=== PATIENT | female | born 1995 | race Caucasian/White ===

== ENCOUNTER 2024-11-06 06:33 | Emergency (ER) | payer OTHER ==
[~2024-11-06] VITALS: Ht 175.3 cm; Wt 88.0 kg
[2024-11-06] MEDS ORDERED: METFORMIN HCL750 MG PO (06:52)
[2024-11-06] MEDS ORDERED: ondansetron HCL 4 MG/2 ML VIAL IV ONE (07:00)
[2024-11-06] MEDS ORDERED: SODIUM CHLORIDE 0.9% 1,000 ML IV PRN (07:00)
[2024-11-06 07:17] LABS: BASOPHILS 0.3 % (0-2); EOSINOPHILS 0.6 % (0-6); HEMATOCRIT 40.8 % (35.0-50.0); HEMOGLOBIN 13.5 g/dL (12.0-18.0); LYMPHOCYTES 3.2 % (24-44); MCH 26.1 (27-36); MCHC 33.1 g/dl (30-36); MCV 78.8 fl (81-99); MONOCYTES 2.9 % (0-12); PLATELET COUNT 297 K/uL (140-440); RBC 5.18 M/ul (4.3-5.7); RDW 13.3 (10.5-15.0)
[2024-11-06 07:31] LABS: ALBUMIN/GLOBULIN RATIO 1.08 (1.1-2.4); ANION GAP 18.9 (7-21); BILIRUBIN, TOTAL 0.9 mg/dL (0.2-1.0); BUN/CREATININE RATIO 13.95 (6.0-28.6); CALCIUM 9.5 mg/dL (8.5-10.1); CREATININE, SERUM 0.86 mg/dL (0.55-1.02); MAGNESIUM 1.6 mg/dL (1.8-2.4); POTASSIUM 3.9 mmol/L (3.5-5.1); PROTEIN, TOTAL 7.7 g/dL (6.4-8.2)
[2024-11-06 08:02] LABS: BILIRUBIN, URINE NEGATIVE (negative); BLOOD/HGB, URINE NEGATIVE (Negative); KETONE, URINE TRACE (Negative); LEUK ESTERASE, URINE NEGATIVE (negative); NITRITE, URINE NEGATIVE (negative)
[2024-11-06] MEDS ORDERED: DICYCLOMINE HCL20 MG PO (08:47)
[2024-11-06] MEDS ORDERED: ONDANSETRON ODT4 MG PO (08:47)
[2024-11-06] MEDS ORDERED: MAGNESIUM400 M1 PO (08:47)
[2024-11-06 08:51] VITALS: BP 117/70
== END 2024-11-06 08:51 | disposition home or self-care (01) ==
LOC: ED 06:33
PROVIDERS: Emergency Medicine
DX: K52.9 Noninfective gastroenteritis and colitis, unspecified (principal); Z88.2 Allergy status to sulfonamides; Z79.84 Long term (current) use of oral hypoglycemic drugs
CPT/HCPCS: 36415; 80053; 81003; 83690; 83735; 84703; 85025; 96374; 99284-25; J2405; J7030